=== PATIENT | female | born 1950 | race Two or more races ===

== ENCOUNTER → 2025-11-04 | Emergency (ER) | payer OTHER ==
[~2025-11-04] MED LIST: IPRATROPIUM BROMIDE 0.5 MG/2.5 ML AMPUL.NEB IH ONE; LEVALBUTEROL HCL 1.25 MG/3 ML SOLUTION IH ONE
== END | disposition left against medical advice (07) ==
LOC: ER 09:56
DX: Z53.21 Procedure and treatment not carried out due to patient leaving prior to being seen by health care provider (principal)